=== PATIENT | female | born 1945 | race Caucasian/White ===

== ENCOUNTER → 2017-05-22 | Outpatient (CLI) | payer MEDICARE, OTHER ==
--- NOTE | 2017-05-26 07:35 | RAD ---
EXAM DESCRIPTION: Pelvis CLINICAL HISTORY: PAIN IN RIGHT HIP COMPARISON: None FINDINGS: Single frontal view the pelvis. Pelvic ring appears intact without displaced fracture. SI joints and sacral struts appear intact. Superior and inferior pubic rami are intact. No advanced osteoarthritis of the bilateral hips is seen. No displaced hip fractures. IMPRESSION: Negative. Electronically signed by: Franklin Molina MD 05/26/2017 7:33 AM [facility]
--- NOTE | 2017-05-26 07:36 | RAD ---
EXAM DESCRIPTION: Knee,Right Complete CLINICAL HISTORY: PAIN IN RIGHT KNEE COMPARISON: April 19, 2015 Findings: 4 standing views of the right knee show no evidence of acute fracture, focal bone destruction, or joint dislocation. Mild to moderate 3 compartment joint line osteophytes are seen with mild narrowing of the medial tibiofemoral compartment and lateral patellofemoral compartment. Mild increased density in the suprapatellar bursa region is seen. Mild posterior osteophytes of the patella are noted. IMPRESSION: 3 compartment osteoarthritic changes of the right knee are seen with moderate osteoarthritic changes of the medial tibiofemoral compartment. Electronically signed by: Kalpesh Jose MD 05/26/2017 7:35 AM [facility]
== END ==
LOC: RAD 07:49
PROVIDERS: ATTEND Orthopaedic Surgery
DX: M17.11 Unilateral primary osteoarthritis, right knee (principal); M25.551 Pain in right hip

== ENCOUNTER → 2018-01-27 | Outpatient (CLI) | payer MEDICARE, OTHER | LOC: GMAH 10:33 | PROVIDERS: ATTEND Family Medicine | DX: E78.2 Mixed hyperlipidemia (principal); Z78.9 Other specified health status ==

== ENCOUNTER → 2018-05-12 | Outpatient (CLI) | payer MEDICARE, OTHER | LOC: GMA 10:41 | PROVIDERS: ATTEND Family Medicine | DX: E78.2 Mixed hyperlipidemia (principal); I10 Essential (primary) hypertension ==

== ENCOUNTER → 2018-05-15 | Outpatient (CLI) | payer MEDICARE, OTHER ==
--- NOTE | 2018-05-15 13:36 | MRI ---
EXAM DESCRIPTION: Knee,Right CLINICAL HISTORY: KNEE PAIN COMPARISON: None Available. TECHNIQUE: MRI of the right knee is performed according to our usual protocol with multiplanar multi sequence imaging. FINDINGS: Small right knee joint effusion with very small popliteal cyst. Advanced tricompartmental osteoarthritis most severe in the medial and lateral compartments with extensive mixed grade 3/4 chondrosis. Mainly grade 2 changes in the patellofemoral compartment but with a near full-thickness cartilage tear in the central portion of the mid articular ridge of the patella. Cruciate and collateral ligaments intact. Extensive complex degenerative tears of the medial and lateral menisci. There is mainly horizontal cleavage plane morphology but the tears extend to the surface and several locations especially mid body and posterior horn. No displaced fragment. IMPRESSION: 1. Complex degenerative meniscal tears medial and lateral 2. Advanced tricompartmental osteoarthritis Electronically signed by: Chris Ornelas MD 05/15/2018 1:34 PM [facility]
== END ==
LOC: MRI 11:00
PROVIDERS: ATTEND Family Medicine
DX: S83.281A Other tear of lateral meniscus, current injury, right knee, initial encounter (principal); S83.241A Other tear of medial meniscus, current injury, right knee, initial encounter; M17.11 Unilateral primary osteoarthritis, right knee

== ENCOUNTER → 2020-04-27 | Outpatient (CLI) | payer MEDICARE, OTHER | LOC: YCFC.O 11:47 | PROVIDERS: ATTEND Nurse Practitioner Family | DX: Z20.828 Contact with and (suspected) exposure to other viral communicable diseases (principal) ==